=== PATIENT | male | born 1995 | race Caucasian/White ===

== ENCOUNTER → 2017-08-31 12:49 | Outpatient (CLI) | payer MEDICARE, MEDICAID, SELFPAY ==
--- NOTE | 2017-08-31 12:51 | RAD_ITS ---
STUDY: SWALLOWING STUDY REASON FOR EXAM: Male, 22 years old. DYSPHAGIA TECHNIQUE: The examination was performed with Speech Pathology in attendance. Under fluoroscopic observation, the patient ingested thin barium, thick barium, barium pudding, and barium coated cracker. FLUOROSCOPY TIME: 1:14 minutes/seconds RADIOLOGIST INVOLVEMENT: Radiologist was present and providing direct supervision. COMPARISON: None. FINDINGS: The following was observed during swallowing of the various mixtures of barium: Thin Barium: There was no evidence of aspiration or laryngeal penetration. Thick Barium: There was no evidence of aspiration or laryngeal penetration. Barium Pudding: There was no evidence of aspiration or laryngeal penetration. Barium Coated Cracker: There was no evidence of aspiration or laryngeal penetration. RAD/Swallowing Function w/Video IMPRESSION: Normal tailored barium swallow study. No evidence of increased risk for aspiration. The swallow study findings were discussed with the patient by the speech pathologist at the conclusion of the examination. Please see speech pathology report for more information and recommendations. The procedure was performed by speech therapist under the direct supervision of myself Electronically Signed: Basilio Nicolas MD at 9:37 EDT Tel , Service support ,
--- NOTE | 2017-08-31 13:00 | SP.MBSS_ITS ---
PRIMARY / SECONDARY DIAGNOSIS: dysphagia (R13.10) REFERRING PHYSICIAN: Dr. Oscar Lara MD CURRENT DIET: mechanical soft textures, thin liquids DENTITION: WFL; high vaulted palate MENTAL STATUS: cognitively impaired RESPIRATORY STATUS: O2 via room air PREVIOUS MODIFIED BARIUM SWALLOW STUDY: yes * results unavailable, and unlikely to be relevant, as all prior studies completed as an REASON FOR REFERRAL: Patient is a 22 year old male referred for a modified barium swallow (MBS) study to objectively assess the Patients oropharyngeal swallow function under fluoroscopy secondary to the diagnosis of Downs syndrome. Patients mother present, reports that the Patient endorses dysphagia with solid textures primarily due to suboptimal mastication prior to deglutition, with intermittent coughing episodes after rapid ingestion with suboptimal mastication (2-3 chews per bolus as reported by the Patients mother). Patients mother further reports prior history of aspiration related pneumonia as an with use of thickening agent, though no issues noted past the stage of development. Patients mother reports researching dysphagia with Downs syndrome, and has requested a downgrade to mechanical soft textures prior to study completion. MEDICAL HISTORY: Downs syndrome, celiac disease, depression, dysfunctional elimination syndrome STUDY FINDINGS: Patient participated in a Modified Barium Swallow (MBS) study on 08/31/2017. Dr. Nicolas was the radiologist present for this evaluation. This study was recorded in the lateral view and images were sent to PACs for storage. The following consistencies were presented to this patient for analysis of oropharyngeal swallow function: thin liquids, pudding, and a regular textured, gluten free cookie provided by the Patients mother. Results of the MBS are as follows: PENETRATION / ASPIRATION SCALE (SUERO): 1 = does not enter airway 2 = enters airway/above vocal folds/ejected 3 = enters airway/above vocal folds/not ejected 4 = enters airway/contacts vocal folds/ejected 5 = enters airway/contacts vocal folds/not ejected 6 = enters airway/below vocal folds/ejected 7 = enters airway/below vocal folds/not ejected despite effort 8 = enters airway/below vocal folds/no effort PENETRATION / ASPIRATION SCALE (SCORE): Thin liquid - 5 mL tsp.: 1 Thin liquids via cup (single sip): 1 Thin liquids via cup (single sip): 1 Thin liquids via cup (single sip): 1 Thin liquids via straw (single sip): 1 Thin liquids via straw (sequential swallows): 1 Pudding via spoon: 1 Regular textured cookie: 1 Thin liquids via straw (single sip): 1 IMPRESSION: DIAGNOSIS: mild oropharyngeal dysphagia (R13.12) ORAL PHASE CHARACTERIZED BY: LABIAL SEAL: no labial escape TONGUE CONTROL DURING BOLUS MANIPULATION: cohesive bolus between tongue to palatal seal BOLUS PREPARATION / MASTICATION: timely and efficient chewing and mashing BOLUS TRANSPORT / LINGUAL MOTION: brisk tongue motion; piecemeal deglutition with solids ORAL RESIDUE: trace residue lining oral structures PHARYNGEAL PHASE CHARACTERIZED BY: INITIATION OF PHARYNGEAL SWALLOW: bolus head in valleculae at first hyoid excursion SOFT PALATE ELEVATION: no bolus between soft palate and pharyngeal wall LARYNGEAL ELEVATION: partial superior movement of thyroid cartilage/partial approximation of arytenoids cartilage to epiglottic petiole ANTERIOR HYOID EXCURSION: complete anterior movement EPIGLOTTIC MOVEMENT: complete epiglottic inversion LARYNGEAL VESTIBULE CLOSURE AT HEIGHT OF SWALLOW: complete laryngeal vestibule closure with no air/contrast in laryngeal vestibule PHARYNGEAL STRIPPING WAVE: pharyngeal stripping wave present / complete PHARYNGOESOPHAGEAL SEGMENT OPENING: partial distension and partial duration; partial obstruction of flow TONGUE BASE RETRACTION: trace column of contrast between tongue base and posterior pharyngeal wall PHARYNGEAL RESIDUE: intermittent trace residue within or on pharyngeal structures (valleculae) ESOPHAGEAL PHASE CHARACTERIZED BY: ESOPHAGEAL BOLUS CLEARANCE IN THE UPRIGHT POSITION: could not view DIET TEXTURE RECOMMENDATIONS: Will recommend continued mechanical soft textured, thin liquid diet. COMPENSATORY STRATEGIES RECOMMENDED: Supervision with cueing provided to complete mastication (count 25-30 chews prior to deglutition or addition of more food), seated upright at 90 degrees during PO intake, INTERPRETATION OF RESULTS: Patient presents with swallow function within functional limitations solely based on the results of the current study; though with consideration of the behavioral patterns reported during ingestion, would consider the Patient to present with mild dysphagia secondary to the diagnosis of Downs syndrome. Oral and pharyngeal phase presentation lack significance to trigger concern for safe PO intake; would attribute any concerns with safe PO intake directly to the Patients reported rapid rate of ingestion and lack of complete mastication. No direct physical limitation identified that would preclude complete mastication, though may consider fatigue as a contributing factor to mastication inefficiency. No aspiration appreciated throughout consistencies trialed. RECOMMENDATIONS: Patient may benefit from additional skilled speech-language intervention sessions targeting diet texture management; training and implementation of recommended compensatory strategies; and Patient and caregiver education regarding safe PO intake strategies (visual cueing, consistently, visual models) . Would consider the Patients cognitive deficits associated with the diagnosis of Downs syndrome to complicate change in intake behavior patterns, would anticipate a slow rate of learning / rapid rate of forgetting, with strong emphasis on consistency during re-training. Patient would further benefit from skilled speech-language intervention targeting expressive communication, with very poor intelligibility reported and demonstrated, with a tendency to thrust the tongue outside of the oral cavity during verbalization. ADDITIONAL COMMENTS/RECOMMENDATIONS: Results and recommendations were discussed with the Patient immediately following MBS completion, with the Patient verbalizing understanding and agreement with all recommendations and education provided. IMAGE COUNT: [id number] G-CODES: SWALLOWING [id number] Current Status: CI SWALLOWING G8997 Goal Status: CI SWALLOWING [id number] Discharge Status: CI
== END ==
PROVIDERS: Family Provider Family Medicine; PCP Family Medicine; Visit Provider Family Medicine
DX: R13.10 Dysphagia, unspecified (principal); Q90.9 Down syndrome, unspecified
CPT/HCPCS: 74230; 92611; G8996; G8997; G8998

== ENCOUNTER 2018-09-13 11:08 | Emergency (ER) | payer MEDICARE, MEDICAID, SELFPAY ==
[2018-09-13 11:09] VITALS: BP 109/65; PULSE 120; RESP 23; TEMP 37.7; O2SAT 92; BMI 27.2
--- NOTE | 2018-09-13 11:38 | RAD_ITS ---
STUDY: X-RAY CHEST REASON FOR EXAM: Male, 23 years old. Cough. TECHNIQUE: PA and lateral views of the chest. COMPARISON: Prior comparison studies are not available for review at this time. FINDINGS: There are subtle increased markings in the lower lungs probably exaggerated by technique factors. No focal infiltrate is seen. There is no demonstrated pleural abnormality. Normal size heart. Normal mediastinum and hattie. Normal visualized pulmonary arteries. Normal visualized aortic arch and descending thoracic aorta. Normal visualized thoracic spine. Normal visualized ribs, clavicles, and shoulders. There is no demonstrated abnormality of the visualized soft tissue structures of the upper abdomen. RAD/Chest PA and Lateral IMPRESSION: No active pulmonary disease. Electronically Signed: Tavo Duran MD at 13:22 EDT Tel , Service support ,
[2018-09-13] MEDS: 0.9% Normal Saline 1,000 ML 1000 ML IV (11:57)
[2018-09-13] MEDS: Ondansetron 4 MG/2 ML Vial IV (11:57)
[2018-09-13] MEDS: Ketorolac 30 MG/ML Syringe IV (11:57)
[2018-09-13 12:13] LABS: Absolute Lymphocyte Count 1.59 X10^3/ul (0.83-4.51); Absolute Neutrophil Count 4.1 X10^3/uL (2.0-7.7); Basophil# 0.03 X10^3/uL; Basophil% 0.5 % (0-1); Eosinophil# 0.02 X10^3/uL; Eosinophils% 0.3 % (0-5); Hematocrit 44.7 % (40-54); Hemoglobin 15.6 g/dl (13.0-16.5); Lymphocyte # 1.59 X10^3/ul (4.0); Lymphocyte % 25.5 % (19-41); Mean Corp Hgb Conc 34.9 g/gl (32-36); Mean Corpuscular Hgb 33.3 pg (27.0-32.0); Mean Corpuscular Volume 95.5 fL (80-94); Mean Platelet Vol. 8.4 fl (6.2-12.0); Monocyte# 0.48 X10^3/uL; Monocyte% 7.7 % (0-10); Neutrophil % 65.8 % (47-70); POSITIVE COUNT NO; POSITIVE DIFFERENTIAL NO; POSITIVE MORPHOLOGY NO; Platelet Count 329 K/mm3 (150-450); RBC Distribution Width CV 12.5 % (11.6-14.6); RBC Distribution Width SD 43.2 fl (35.1-43.9); Red Blood Count 4.68 M/mm3 (4.6-6.2); White Blood Count 6.2 K/mm3 (4.4-11.0)
[2018-09-13 12:28] LABS: ALB/GLOB Ratio 0.8 RATIO (0.9-2.4); AST(SGOT) 16 U/L (15-37); Alanine Aminotransfer ALT/SGPT 23 U/L (16-61); Albumin, Serum 3.7 g/dL (3.2-5.0); Alkaline Phosphatase 98 U/L (45-117); Anion Gap 5 (5-15); BUN 8 mg/dL (7-18); BUN/Creat Ratio 6.2 RATIO (10-20); Calcium,Total 8.8 mg/dL (8.5-10.1); Chloride 106 mmol/L (98-107); Creatinine, Serum 1.29 mg/dL (0.70-1.30); EST Glomerular Filtration Rate 73 mL/min (>60); Est Glom Filt Rate - Afr Amer 88 mL/min (>60); Estimated Creatinine Clearance 80.37 ml/min; Globulin 4.4 g/dL (2.2-4.2); Glucose 101 mg/dL (74-106); Lipase 92 U/L (73-393); Potassium 4.5 mmol/L (3.5-5.1); Protein, Total 8.1 g/dL (6.4-8.2); Sodium Level 140 mmol/L (136-145)
[2018-09-13 13:03] VITALS: PULSE 88; RESP 18
[2018-09-13 13:29] VITALS: PULSE 82; RESP 18; TEMP 36.9; O2SAT 94
--- NOTE | 2018-09-13 13:49 | RAD_ITS ---
STUDY: X-RAY - ABDOMEN/PELVIS REASON FOR EXAM: Male, 23 years old. Constipation. Two-month history of periumbilical abdominal pain. TECHNIQUE: Single AP view of the abdomen / pelvis. COMPARISON: None. FINDINGS: Normal visualized lung bases. There is an unremarkable bowel gas pattern. There is no demonstrated free abdominal air. The visualized liver, spleen and kidneys are grossly normal in size and morphology. Normal soft tissue structures. Normal visualized osseous structures. RAD/Abdomen Single View (Portable) IMPRESSION: Normal x-ray examination of the abdomen and pelvis. Electronically Signed: Harry Chahal, at 14:40 EDT , Service support ,
--- NOTE | 2018-09-13 14:51 | ED.DCSUM_ITS ---
- ER Visit Summary Date of Service: 09/13/18 Chief Complaint: Cough she is History of Present Illness: The patient is a [address] Marlyn rodriguez. He has a history of Down syndrome but severely limiting his ability to give a history. Mother reports he has a cough began 8 days ago. He has had a fever to 101.8 degrees. He has been short of breath off and on. He has not been wheezing. He had 2 episodes of posttussive emesis this morning. No diarrhea. He has not been around anyone sick that she knows of. Physical Examination: Vitals: Stable. Afebrile. General: Well-nourished and well-developed. Head: Normocephalic atraumatic. Neck: Supple, no lymphadenopathy. No JVD. Nontender. Cardiovascular: Regular rate and rhythm. No murmurs. Respiratory: No respiratory distress. Clear to auscultation bilaterally. Abdominal: Soft, mild diffuse tenderness to palpation, nondistended, normal bowel sounds. No guarding, rebound, or peritoneal signs. Back: Nontender. Extremities: Nontender, no edema. Skin: Normal color, no rash. Neurologic: Alert and oriented ?3. Cranial nerves II through XII are intact. Normal strength and sensation. Psych: Normal affect. Test Results: CBC is normal. Chem-7 is normal. LFTs marked before a globulin of 4.4. Lipase normal. Influenza is negative. Clinical Impression(s) from Imaging Studies Chest X-Ray 09/13/18 11:38 IMPRESSION: No active pulmonary disease. Electronically Signed: Tavo Duran MD at 13:22 EDT Tel , Service support , KUB X-Ray 09/13/18 13:49 IMPRESSION: Normal x-ray examination of the abdomen and pelvis. Electronically Signed: Harry Chahal at 14:40 EDT , Service support , Emergency Department Course and Treatment: Patient was treated Toradol and Zofran IV. He was given a liter normal saline. He is resting comfortably. Treatment Plan: Patient will be discharged with symptomatic care. He is given prescription for Zofran for nausea. Follow-up his primary care physician in 3-5 days if not improving. Return to the emergency department for any worsening symptoms. Disposition: To home in improved and stable condition. Impression: 1. URI. This note was generated with [employer] dictation software. It may contain incorrect words, spelling, and punctuation that were not noted in review of the chart prior to signing ED Disposition - Plan for ED Patient: Disposition: Home or Assisted Living Instructions: ED Upper Resp Infec No Abx Tx Prescriptions: Ondansetron [Zofran Odt] 4 mg PO Q8H PRN PRN #10 tablet PRN Reason: Nausea Referrals: Prosper Lara MD [Primary Care Provider] - 3-5 Days if not improving
[2018-09-13 14:58] VITALS: O2SAT 97
== END 2018-09-13 14:58 | disposition home or self-care (01) ==
LOC: ED 11:54
PROVIDERS: Emergency Provider Emergency Medicine; Family Provider Family Medicine; PCP Family Medicine
DX: J06.9 Acute upper respiratory infection, unspecified (principal); Q90.9 Down syndrome, unspecified
CPT/HCPCS: 71046; 74018; 80053; 83690; 85025; 87804; 96361; 96374; 96375; 99284; J7030; A4216; J2405

== ENCOUNTER → 2019-08-25 10:47 | Outpatient (CLI) | payer MEDICARE, MEDICAID, SELFPAY ==
--- NOTE | 2019-08-15 16:33 | EKG12_ITS ---
Test Reason : PTSD, ANXIETY Blood Pressure : / mmHG Vent. Rate : 073 BPM Atrial Rate : 073 BPM P-R Int : 198 ms QRS Dur : 098 ms QT Int : 378 ms P-R-T Axes : 049 091 034 degrees QTc Int : 416 ms Normal sinus rhythm Rightward axis Borderline ECG Confirmed by CARSON SANTIZO, SATHYA ([id number]), purchasing expeditor ANAT CHAIREZ ([id number]) on 08/18/2019 3:42:38 PM Referred By: MARIA M BRUNNER Confirmed By:SATHYA BYRD MD
[2019-08-25 11:27] LABS: Absolute Lymphocyte Count 2.43 X10^3/uL (0.83-4.51); Absolute Neutrophil Count 2.2 X10^3/uL (2.0-7.7); Basophil# 0.05 X10^3/uL; Eosinophil# 0.02 X10^3/uL; Eosinophils% 0.4 % (0-5); Hematocrit 48.6 % (40-54); Hemoglobin 16.5 g/dL (13.0-16.5); Lymphocyte # 2.43 X10^3/ul (4.0); Lymphocyte % 47.6 % (19-41); Mean Corpuscular Hgb 32.5 pg (27.0-32.0); Mean Corpuscular Volume 95.9 fL (80-94); Mean Platelet Vol. 8.5 fl (6.2-12.0); Monocyte# 0.36 X10^3/uL; NRBC Flagged by Analyzer 0 % (0-5); Neutrophil # 2.24 X10^3/uL (2.7-7.7); Neutrophil % 43.8 % (47-70); Platelet Count 200 K/mm3 (150-450); RBC Distribution Width CV 12.7 % (11.6-14.6); RBC Distribution Width SD 44.6 fl (35.1-43.9); Red Blood Count 5.07 M/mm3 (4.6-6.2); White Blood Count 5.1 K/mm3 (4.4-11.0)
[2019-08-25 11:52] LABS: T3 Total - Triiodothyronine 1.08 ng/mL (0.6-1.81)
[2019-08-25 12:13] LABS: ALB/GLOB Ratio 1.1 RATIO (0.9-2.4); AST(SGOT) 20 U/L (15-37); Alanine Aminotransfer ALT/SGPT 28 U/L (16-61); Albumin, Serum 3.9 g/dL (3.2-5.0); Alkaline Phosphatase 116 U/L (45-117); Anion Gap 4 (5-15); BUN 12 mg/dL (7-18); BUN/Creat Ratio 10.4 RATIO (10-20); Calcium,Total 8.9 mg/dL (8.5-10.1); Chloride 107 mmol/L (98-107); Cholesterol 197 mg/dL (200); Creatinine, Serum 1.15 mg/dL (0.70-1.30); EST Glomerular Filtration Rate 83 mL/min (>60); Est Glom Filt Rate - Afr Amer 100 mL/min (>60); Globulin 3.6 g/dL (2.2-4.2); Glucose 92 mg/dL (74-106); High Density Lipoprotein 38 mg/dL; Potassium 4.3 mmol/L (3.5-5.1); Protein, Total 7.5 g/dL (6.4-8.2); Sodium Level 141 mmol/L (136-145); T4 Total, Thyroxin 6.9 ug/dL (4.5-12.1); Triglycerides 87 mg/dL; Very Low Density Lipoprotein 17 mg/dL (5-40)
== END ==
PROVIDERS: PCP Family Medicine
DX: F43.10 Post-traumatic stress disorder, unspecified (principal); F41.9 Anxiety disorder, unspecified; Z79.899 Other long term (current) drug therapy
CPT/HCPCS: 36415; 80053; 80061; 83036; 84436; 84443; 84480; 85025; 93005

== ENCOUNTER → 2020-03-02 11:11 | Outpatient (CLI) | payer MEDICARE, MEDICAID, SELFPAY | PROVIDERS: PCP Family Medicine | DX: F32.9 Major depressive disorder, single episode, unspecified (principal); Z79.899 Other long term (current) drug therapy | CPT/HCPCS: 36415 ==